=== PATIENT | male | born 1990 | race Asian ===

== ENCOUNTER 2019-05-01 13:26 | Emergency (ER) | payer OTHER ==
[~2019-05-01] VITALS: Ht 177.8 cm; Wt 77.1 kg
[2019-05-01] MEDS ORDERED: ALLEGRA-D 24 H1 EACH PO (17:02)
[2019-05-01] MEDS ORDERED: AMOX-CLAV 875-1 EACH PO (17:02)
== END 2019-05-01 17:07 | disposition home or self-care (01) ==
LOC: ER 13:26
DX: H66.91 Otitis media, unspecified, right ear (principal)